=== PATIENT | female | born 1995 | race Caucasian/White ===

== ENCOUNTER 2024-06-05 12:15 | Outpatient (AMB) | payer OTHER, SELFPAY ==
--- NOTE | 2024-06-05 12:23 | MHC.OFFVIS ---
Vital Signs 06/05/24 12:32 Height 5 ft 6 in Weight 193 lb BMI 31.1 BP 118/70 Intake Visit Reasons: Tubal Consult/referral/DO NOT RS Intake Note: Patient here for tubal consult,have 2 children and one stepdaughter [employer] Required: No Information Interpreted: non-clinical & clinical Accompanied by: Self / Same As Patient Allergies No Known Allergies [NO KNOWN ALLERGIES] Allergy (Unknown, Unverified 06/05/24 12:33) UNKNOWN Is last menstrual period known: Yes Last menstrual period: 05/29/24 HPI Comments Details: Presenting to discuss different options of control specifically sterilization. Last Pap smear was 4 years ago at [facility] within normal. The patient has regular menstrual cycles [facility] Social History Household Members: Significant Other and Children Housing: House Alcohol intake: current Alcohol intake frequency: holidays/special occasions only Patient Tobacco Use Status: Never used Tobacco Current occupational status: unemployed Sexual orientation: Straight/Heterosexual Gender identity: Female Female Reproductive History Menstrual Duration of menses: 3-5 days Date of last menstrual period: 05/29/24 control method: none Total pregnancies: 3 Full term: 2 Number of Living Children: 2 Ab induced: 1 Review of Systems Const All systems reviewed & are unremarkable except as noted in HPI and below Reports as per HPI and Reports no additional complaints GI Reports no additional complaints Reports no additional complaints Physical Exam Vital Signs: Last Vital Signs BP 118/70 06/05/24 12:32 BMI result Body Mass Index 31.1 Assessment & Plan Assessment & Plan (1) Family planning: Code(s): Z30.09 - Encounter for other general counseling and advice on contraception Category: Social Hx Plan: Discussed with the patient the different options of control including but not limited to, control pills, Nuvaring, DMPA and Nexplanon, Copper and Progesterone IUD, Sterilization, & vasectomy. A more detailed discussion about the pros and cons of each were discussed with the pt. The patient elected to go with tubal sterilization. Medicaid form was signed by the patient, instructions given the patient to schedule a preop visit in more than 30 days. All questions answered, the patient verbalized understanding Coding Level of Care Code New Pt Level 3 (36814) Diagnoses Family planning Z30.09
[2024-06-05 12:32] VITALS: BP 118/70; BMI 31.1
== END 2024-06-05 13:24 | disposition home or self-care (01) ==
LOC: HO.HWS 12:15
PROVIDERS: PCP Nurse Practitioner Pediatrics; Visit Provider Obstetrics & Gynecology
DX: Z30.09 Encounter for other general counseling and advice on contraception (principal)
CPT/HCPCS: 99203

== ENCOUNTER → 2024-06-05 12:15 | Outpatient (BNVA) | payer OTHER, SELFPAY | PROVIDERS: PCP Nurse Practitioner Pediatrics; Visit Provider Obstetrics & Gynecology | DX: Z30.09 Encounter for other general counseling and advice on contraception (principal) | CPT/HCPCS: 99202 ==

== ENCOUNTER 2024-07-09 12:19 | Outpatient (AMB) | payer OTHER, SELFPAY ==
--- NOTE | 2024-07-09 12:30 | MHC.OFFVIS ---
Vital Signs 07/09/24 12:31 Height 5 ft 6 in Weight 191 lb 12.835 oz BMI 31.0 Intake Visit Reasons: pre op Musical Therapist: Musical Therapist Present Allergies No Known Allergies [NO KNOWN ALLERGIES] Allergy (Unknown, Unverified 06/05/24 12:33) UNKNOWN Is last menstrual period known: Yes Last menstrual period: 09/18/20 Post menopausal: No Patient : No Do you need a note to return to daycare/school/sports/work: Yes (for surgery on tuesday) HPI Comments Details: Presenting discussed laparoscopic bilateral sterilization using bipolar cautery possible bilateral salpingectomy. The patient completed family and requesting permanent sterilization. [facility] Social History Household Members: Significant Other and Children Housing: House Alcohol intake: current Alcohol intake frequency: holidays/special occasions only Patient Tobacco Use Status: Never used Tobacco Current occupational status: unemployed Sexual orientation: Straight/Heterosexual Gender identity: Female Female Reproductive History Menstrual Date of last menstrual period: 09/18/20 Total pregnancies: 2 Full term: 2 Review of Systems Card Reports as per HPI and Reports no additional complaints Resp Reports as per HPI and Reports no additional complaints GI Reports as per HPI and Reports no additional complaints Reports as per HPI Physical Exam Vital Signs: BMI result Body Mass Index 31.0 Const General: cooperative, healthy appearing and comfortable Resp Effort & Inspection: normal respiratory effort Auscultation: clear to auscultation bilaterally Percussion: percussion normal Cardio Palpation: normal PMI Rate: regular rate Rhythm: regular rhythm Heart sounds: no murmurs and no rubs Peripheral pulses: Peripheral pulses 2+ throughout GI Inspection: Yes normal to inspection Palpation (GI): Soft to palpation, nontender, no guarding, not rigid and No hepatosplenomegaly present Percussion: Yes normal to percussion Auscultation: normal bowel sounds Rectal Exam - Female: deferred Assessment & Plan Assessment & Plan (1) Sterilization: Code(s): Z30.2 - Encounter for sterilization Category: Medical Plan: Discussed with the patient the different options of control including but not limited to, control pills, Nuvaring, DMPA and Nexplanon, Copper and Progesterone IUD, Sterilization, & vasectomy. A more detailed discussion about the pros and cons of each were discussed with the pt. The patient elected to go with tubal sterilization. Different techniques were discussed with the patient including laparoscopic bilateral fallope ring application, bipolar cauterization of Fallopian tubes & bilateral salpingectomy with benefits of reducing ovarian cancer (mentioned to the patient that currently this is the recommended procedure for sterilization). Discussed with the patient the likelihood of success, the failure rate and risk of ectopic , irreversibility of the procedure , regret rate and complications during procedure including but not limited to: Inability to perform the procedure for a variety of technical reasons, bleeding, infection, possible need for blood transfusion with all its risks, risk exposure HIV Hepatitis B and C, anesthesia complications, possible uterine perforation, injury to bladder, bowel, ureter, blood vessel, vagina by way of perforation requiring a second operation to repair fistula, major surgery requiring colostomy, possible laparoscopy, laparotomy or hysterectomy, possible hernia from the incisions, thrombosis, possible ,? tubal , . Laparoscopic bilateral sterilization using bilateral cauterization possible bilateral salpingectomies scheduled. Instructions given the patient to stay NPO after midnight prior to the scheduled procedure date. All questions answered. The patient verbalized understanding and signed the consent. Procedure scheduled for 07/20/2024, the patient is aware. Coding Level of Care Code Est Pt Level 3 (36453) Diagnoses Sterilization Z30.2
[2024-07-09 12:31] VITALS: BMI 31.0
== END 2024-07-09 13:11 | disposition home or self-care (01) ==
LOC: HO.HWS 12:19
PROVIDERS: PCP Nurse Practitioner Pediatrics; Visit Provider Obstetrics & Gynecology
DX: Z30.2 Encounter for sterilization (principal)
CPT/HCPCS: 99213

== ENCOUNTER → 2024-07-09 12:19 | Outpatient (BNVA) | payer OTHER, SELFPAY | PROVIDERS: PCP Nurse Practitioner Pediatrics; Visit Provider Obstetrics & Gynecology | DX: Z30.09 Encounter for other general counseling and advice on contraception (principal) | CPT/HCPCS: 99212 ==

== ENCOUNTER 2024-07-20 05:44 | Day surgery (SDC) | payer OTHER, SELFPAY ==
[2024-07-18 07:00] VITALS: BMI 30.8
--- NOTE | 2024-07-18 13:02 | HO.ANESPROP2 ---
Documented by User: Elizabeth Hanks NP 07/18/24 13:02 HPI - Anesthesia Eval Consult details Narrative: 28yo F for Tubal Ligation Laparoscopic PMFSH Active Problems Active Problems: All Active Problems Sterilization (Acute) Family planning (Acute) Social History Social History Household Members: Significant Other and Children Housing: House Alcohol intake: current Alcohol intake frequency: holidays/special occasions only Patient Tobacco Use Status: Never used Tobacco Use of substances other than those prescribed or required for medical reasons: Yes Substance Use Frequency: Daily Are you DNR?: No Advance Directives: No Advance Directives Information Provided: Yes Recently lost weight without trying: No Current occupational status: unemployed Sexual orientation: Straight/Heterosexual Gender identity: Female Meds Allergies Allergy/AdvReac Type Severity Reaction Status Date / Time No Known Allergies Allergy Unknown UNKNOWN Verified 07/20/24 06:20 [NO KNOWN ALLERGIES] Home Medications ?Medication ?Instructions ?Recorded ?Confirmed ?Last Taken ?Type No Known Home Meds 06/05/24 07/20/24 Unknown History Exam Height,Weight and Vital Signs: Height 5 ft 6 in Weight 86.636 kg Assessment and Plan Assessment Anesthesia Assessment: Chart Reviewed Documented by User: Karla Ware MD 07/20/24 07:52 PMFSH Surgical History History of Problems with Anesthesia: No Social History Social History Household Members: Significant Other and Children Housing: House Alcohol intake: current Alcohol intake frequency: holidays/special occasions only Patient Tobacco Use Status: Never used Tobacco Use of substances other than those prescribed or required for medical reasons: Yes Substance Use Frequency: Daily Are you DNR?: No Advance Directives: No Advance Directives Information Provided: Yes Recently lost weight without trying: No Current occupational status: unemployed Sexual orientation: Straight/Heterosexual Gender identity: Female Meds Allergies Allergy/AdvReac Type Severity Reaction Status Date / Time No Known Allergies Allergy Unknown UNKNOWN Verified 07/20/24 06:20 [NO KNOWN ALLERGIES] Home Medications ?Medication ?Instructions ?Recorded ?Confirmed ?Last Taken ?Type No Known Home Meds 06/05/24 07/20/24 Unknown History Exam Airway Mallampati Class: II TM Dist: >3cm Neck ROM: Full Loose/Missing/Broken Teeth: No Heart: RRR Lungs: CTA Assessment and Plan Assessment Anesthesia Assessment: Anesthesia Plan Discussed Final Anesthetic Review History of Problems with Anesthesia: No NPO: Yes ASA Class: I Final Preanesthetic Review: Meds/Allgs Chart Reviewed, Consent Obtained/Reviewed and Anes Risks/Benef Reviewed Patient Risk: Low Procedure Risk: Low Anesthetic Plan Anesthetic Plan: GA Disposition: Standard PACU
[2024-07-20 06:19] VITALS: BMI 31.5
[2024-07-20 06:25] LABS: UPreg QC Valid YES; Urine Pregnancy NEGATIVE (NEGATIVE)
[2024-07-20 06:31] VITALS: BP 133/71; PULSE 85; RESP 16; TEMP 37.4; O2SAT 98
[2024-07-20] MEDS: Lactated Ringers 1,000 ML 100 ML IVCONT (06:58)
--- NOTE | 2024-07-20 07:24 | MHC.SHP ---
Pre-Procedural Eval Section A - 24 Hr Update-Section A only Date of Service: 07/20/24 The patient is an INPATIENT: No Changes since office visit: No Cold of Flu in the past 2 weeks, No New Medical Problems, No Changes in Medication and No Patient answered all questions The patient has been examined within 24 hours of the surgical procedure. The History & Physical has been completed within 30 days and I have reviewed it.: Yes Section B - Complete if H&P > 30 days Chief Complaint: Encounter for other general counseling and advice Allergies: Allergies Allergy/AdvReac Type Severity Reaction Status Date / Time No Known Allergies Allergy Unknown UNKNOWN Verified 07/20/24 06:20 [NO KNOWN ALLERGIES] Plan Diagnosis/Plan: Unchanged I have reviewed the history and physical and performed a pertinent physical examination on my patient. No changes have occurred unless specified. Time Spent With Patient Time: Total time managing care of this patient today ____ minutes.
[2024-07-20 08:50] VITALS: BP 139/96; PULSE 95; RESP 18; TEMP 36.7; O2SAT 100
--- NOTE | 2024-07-20 08:51 | PM.OP ---
Brief Operative Note Date of Service: 07/20/24 Post-op diagnosis: same Procedure: Laparoscopic bliateral salpingectomy Surgeon: Tal Zamora MD Anesthesia: GETA Was an Passenger Service Representative used for this Procedure?: No Estimated blood loss (mL): 0 Pathology: other (Right & left fallopian tubes) Condition: stable Disposition: PACU
--- NOTE | 2024-07-20 08:52 | W.PM.OPN ---
Operative Note Operative Note Date of Service: 07/20/24 Narrative: PREOPERATIVE DIAGNOSIS:?Completed family requesting?permanent sterilization POSTOPERATIVE DIAGNOSIS:?Completed family requesting?permanent sterilization QBL: Minimal Anesthesia: GETA SURGEON:? Tal Zamora MD?? Restaurant Busser: Complications: None Pathology: Right and left Fallopian tubes? DESCRIPTION OF PROCEDURE:?The patient was taken to the OR where general anesthesia was easily obtained. The patient was then prepped and draped in a sterile fashion and placed in dorsal lithotomy position. A speculum was introduced into the patient?s vagina for cervical visualization. Once the cervix was visualized, a single-toothed tenaculum was applied to the upper lip of the cervix, and a Humi manipulator was introduced into the patient?s cervix. The single tooth tenaculum was then removed and hemostasis was assured?using pressure. a Mckenna catheter?was inserted and clear urine started draining. Gloves were changed to clean ones. Attention was then drawn to the abdomen where a 10 mm longitudinal incision was done intra umbilical and carried down all the way to the fascia, which was tented?up using 2 Amy clamps and was nicked in the midline and then extended on both end of the incision?, them using 2 pick?ups the peritoneum?was entered with Metzenbaum scissors and under direct visualization, a 10 mm Royal trocar was introduced into the patient?s abdomen. Once intraperitoneal placement was confirmed with direct visualization, pneumoperitoneum was started & was easily obtained.Then, two fingerbreadths above the pubic symphysis and towards the?right lower quadrant, under direct visualization, a 5 mm trocar was then introduced into the patient?s abdomen. and a 3rd one on the left?lower quadrant was placed?in a similar manner. The patient was placed in Trendelenburg position, Inspection revealed normal pelvic structures & bilateral ovaries and fallopian tubes. Attention was then drawn to the left fallopian tube. The IP ligament was identified and fallopian tube was then grasped by the fimbria and incised from the mesosalpinx using ligasure device, using cautery for hemostasis and cutting afterwards a bite at a time all the way to the cornual end of the left tube. The same was done?on the?right fallopian tube. Good hemostasis was noted from both fallopian tube sites and the operative site. Specimen were then removed from the patient?s abdomen. Copious irrigation was done. Once good hemostasis was noted from the patient?s abdomen, pneumoperitoneum was deflated and all trocars were removed. Infraumbilical fascia was closed with 0 Vicryl and interrupted suture. The skin was closed with 4-0 Vicryl. The Right and left?lower quadrant ports were closed with 0 Vicryl. Bupivicaine 0.25 10 cc were injected subcuticularly in the 3 incisions. Then speculum was put back in the vagina inspection revealed?hemostasis at the site of the tenaculum, the?humi manipulator was removed? and Mckenna was draining clear urine was taken out too. Sponge, lap and needle counts were correct x2. The patient was taken to the recovery room in stable condition.
[2024-07-20 08:55] VITALS: BP 147/94; PULSE 83; RESP 16; O2SAT 98
[2024-07-20 09:00] VITALS: BP 127/70; PULSE 84; RESP 16; O2SAT 98
[2024-07-20 09:05] VITALS: BP 126/80; PULSE 68; RESP 16; O2SAT 98
[2024-07-20 09:20] VITALS: BP 138/84; PULSE 70; RESP 18; TEMP 36.7; O2SAT 100
== END 2024-07-20 10:30 | disposition home or self-care (01) ==
PROVIDERS: PCP Nurse Practitioner Pediatrics; Visit Provider Obstetrics & Gynecology
PROC: (CPT 58670; principal; 2024-07-20 07:30)
DX: Z30.2 Encounter for sterilization (principal); Z56.0 Unemployment, unspecified
CPT/HCPCS: 58661; 81025; 88302; J1100; J1885; J2250; J2405; J2704; J2795; J3010

== ENCOUNTER → 2024-07-20 05:44 | Outpatient (BNV) | payer OTHER, SELFPAY | PROVIDERS: PCP Nurse Practitioner Pediatrics; Visit Provider Obstetrics & Gynecology | DX: Z30.2 Encounter for sterilization (principal) | CPT/HCPCS: 58661 ==

== ENCOUNTER 2024-07-26 09:47 | Outpatient (AMB) | payer OTHER, SELFPAY ==
--- NOTE | 2024-07-26 10:01 | MHC.OFFVIS ---
Intake Visit Reasons: post op Allergies No Known Allergies [NO KNOWN ALLERGIES] Allergy (Unknown, Verified 07/26/24 10:01) UNKNOWN HPI Comments Details: The patient is presenting 2 weeks post laparoscopic bilateral salpingectomy. The patient has no complaints. No feverishness, chills, no pain at the incision sites, no GI/ symptoms. The pathology showed the following: A. Fallopian tube, right, salpingectomy: Fallopian tube within normal limits. B. Fallopian tube, left, salpingectomy: Fallopian tube within normal limits [facility] Social History Household Members: Significant Other and Children Housing: House Alcohol intake: current Alcohol intake frequency: holidays/special occasions only Patient Tobacco Use Status: Never used Tobacco Current occupational status: unemployed Sexual orientation: Straight/Heterosexual Gender identity: Female Physical Exam GI Other: Incisions: clean dry and intact Inspection: No visible peristalsis Palpation (GI): Soft to palpation Assessment & Plan Assessment & Plan (1) Sterilization: Comment: Status post laparoscopic bilateral salpingectomy Code(s): Z30.2 - Encounter for sterilization Category: Medical Plan: Discussed the patient the intraoperative findings, the pathology, the patient was reassured. Instructions given to patient to call in case of temperature above 100.4, nausea or vomiting, and pain, heavy vaginal bleeding, incisional redness, gapping or discharge. All questions answered, the patient verbalized understanding Coding Level of Care Code Est Pt Level 3 (34527) Diagnoses Sterilization Z30.2
== END 2024-07-26 10:15 | disposition home or self-care (01) ==
LOC: HO.HWS 09:47
PROVIDERS: PCP Nurse Practitioner Pediatrics; Visit Provider Obstetrics & Gynecology
DX: Z30.2 Encounter for sterilization (principal)
CPT/HCPCS: 99024

== ENCOUNTER → 2024-07-26 09:47 | Outpatient (BNVA) | payer OTHER, SELFPAY | PROVIDERS: PCP Nurse Practitioner Pediatrics; Visit Provider Obstetrics & Gynecology | DX: Z48.89 Encounter for other specified surgical aftercare (principal); Z90.79 Acquired absence of other genital organ(s) | CPT/HCPCS: 99212 ==